=== PATIENT | female | born 1980 | race Two or more races ===

== ENCOUNTER 2017-12-10 05:19 | Emergency (ER) | payer SELFPAY ==
[~2017-12-10] VITALS: Ht 162.6 cm; Wt 78.9 kg
[2017-12-10 06:04] LABS: BILIRUBIN,URINE NEGATIVE (NEG); CLARITY,URINE CLEAR; COLOR,URINE YELLOW; NITRITE,URINE NEGATIVE (NEG); PH,URINE 6.5; PROTEIN,URINE NEGATIVE (NEG-TRACE); UROBILINOGEN,URINE 0.2 mg/dL (0.2 mg/dL)
[2017-12-10 06:16] LABS: SQUAMOUS EPITHELIAL CELL,UR MOD /LPF
[2017-12-10 06:17] LABS: AMORPHOUS SEDIMENT,UR PRESENT /HPF; BACTERIA,URINE 0 /HPF (0-FEW); WBC,URINE OCC /HPF (0-4)
--- NOTE | 2017-12-10 06:27 | PHYS DOC ---
Past Medical History Past Medical History: No Pertinent History Past Surgical History: No Surgical History Smoking: Cigarettes Alcohol Use: None Drug Use: None Adult General Chief Complaint Chief Complaint: ABDOMINAL PAIN HPI HPI 37-year-old female presenting to the emergency department today with epigastric abdominal pain that radiates into the back. It is sharp shooting pain that comes and goes. It is been present for the past 6 hours today without any alleviating or exacerbating factors. No associated nausea. This occurred approximately 3 weeks ago as well similar symptoms. She denies fevers or chills. she denies any previous abd surgeries. Review of systems is negative for chest pain shortness of breath or blood in stools. positive for 2 episodes of emesis. All other review systems is negative. ED course: 37-year-old female presenting the emergency department today with epigastric abdominal pain. On arrival the patient's afebrile with normal heart rate. She is well-appearing on examination. Abdomen is soft and mildly tender in the right upper quadrant. No rebound tenderness or guarding. Negative McBurney's point. The remainder the exam is unremarkable. Ultrasound shows gallstones. CAT scan also reports possible large fecal ball versus intraluminal mass. I explained these findings the patient and give the patient a handout of the findings to follow-up with her primary care doctor in the next 2-3 days over. The patient's symptoms are suggestive of symptomatic cholelithiasis. Refer the patient a surgeon with oral pain medication and nausea medication.The patient has been examined and was not found to have an emergency medical condition. The patient was then discharged home in stable condition to follow up with their primary care physician over the next 2-3 days. They were to return if their symptoms worsened or if they were concerned for any reason. They were also instructed to return to the emergency department if they were unable to get the recommended and appropriate follow-up. [id number] discharge instructions and return precautions were given. Patient's questions were answered to their satisfaction. Patient is comfortable with plan. Current Medications Current Medications Current Medications Medications (Trade) Dose Ordered Sig/Tiago Start Time Stop Time Status Last Admin Dose Admin Fentanyl Citrate (Fentanyl 2ml Vial) 50 mcg 1X ONCE 12/10/17 07:00 12/10/17 07:01 DC 12/10/17 06:31 50 MCG Info (CONTRAST GIVEN -- Rx MONITORING) 1 each PRN DAILY PRN 12/10/17 07:00 12/12/17 06:59 Iohexol (Omnipaque 300 Mg/ml) 75 ml 1X ONCE 12/10/17 07:00 12/10/17 07:01 DC Sodium Chloride 1,000 ml @ 1,000 mls/hr 1X ONCE 12/10/17 07:00 12/10/17 07:59 DC 12/10/17 06:31 1,000 MLS/HR Allergies Allergies Allergies Coded Allergies Type Severity Reaction Last Updated Verified No Known Drug Allergies 12/10/17 No Physical Exam Physical Exam Constitutional: Well developed, well nourished, no acute distress, non-toxic appearance. [] HENT: Normocephalic, atraumatic, bilateral external ears normal, oropharynx moist, no oral exudates, nose normal. [] Eyes: PERRLA, EOMI, conjunctiva normal, no discharge. [] Neck: Normal range of motion, no tenderness, supple, no stridor. [] Cardiovascular:Heart rate regular rhythm, no murmur [] Lungs & Thorax: Bilateral breath sounds clear to auscultation [] Abdomen: Bowel sounds normal, soft, no masses, no pulsatile masses. as above Skin: Warm, dry, no erythema, no rash. [] Back: No tenderness, no CVA tenderness. [] Extremities: No tenderness, no cyanosis, no clubbing, ROM intact, no edema. [] Neurologic: Alert and oriented X 3, normal motor function, normal sensory function, no focal deficits noted. [] Psychologic: Affect normal, judgement normal, mood normal. [] Current Patient Data Vital Signs Vital Signs Date Time Temp Pulse Resp B/P (MAP) Pulse Ox O2 Delivery O2 Flow Rate FiO2 12/10/17 07:00 58 114/66 (82) 99 Room Air 12/10/17 06:31 16 12/10/17 06:07 98.2 98.2 Lab Values Laboratory Tests Test 12/10/17 05:28 12/10/17 05:49 12/10/17 06:03 Urine Collection Type Unknown Urine Color Yellow Urine Clarity Clear Urine pH 6.5 Urine Specific [place] 1.025 Urine Protein Negative mg/dL (NEG-TRACE) Urine Glucose (UA) Negative mg/dL (NEG) Urine Ketones (Stick) Negative mg/dL (NEG) Urine Blood Moderate (NEG) Urine Nitrite Negative (NEG) Urine Bilirubin Negative (NEG) Urine Urobilinogen Dipstick 0.2 mg/dL (0.2 mg/dL) Urine Leukocyte Esterase Trace (NEG) Urine RBC 3-5 /HPF (0-2) Urine WBC Occ /HPF (0-4) Urine Squamous Epithelial Cells Mod /LPF Urine Amorphous Sediment Present /HPF Urine Bacteria 0 /HPF (0-FEW) Urine Mucus Mod /LPF POC Urine HCG, Qualitative Hcg negative (Negative) White Blood Count 10.0 x10^3/uL (4.0-11.0) Red Blood Count 4.23 x10^6/uL (3.50-5.40) Hemoglobin 11.6 g/dL (12.0-15.5) L Hematocrit 34.5 % (36.0-47.0) L Mean Corpuscular Volume 82 fL (79-100) Mean Corpuscular Hemoglobin 28 pg (25-35) Mean Corpuscular Hemoglobin Concent 34 g/dL (31-37) Red Cell Distribution Width 14.9 % (11.5-14.5) H Platelet Count 266 x10^3/uL (140-400) Neutrophils (%) (Auto) 70 % (31-73) Lymphocytes (%) (Auto) 21 % (24-48) L Monocytes (%) (Auto) 7 % (0-9) Eosinophils (%) (Auto) 1 % (0-3) Basophils (%) (Auto) 1 % (0-3) Neutrophils # (Auto) 7.1 x10^3uL (1.8-7.7) Lymphocytes # (Auto) 2.1 x10^3/uL (1.0-4.8) Monocytes # (Auto) 0.7 x10^3/uL (0.0-1.1) Eosinophils # (Auto) 0.1 x10^3/uL (0.0-0.7) Basophils # (Auto) 0.1 x10^3/uL (0.0-0.2) Sodium Level 140 mmol/L (136-145) Potassium Level 3.9 mmol/L (3.5-5.1) Chloride Level 104 mmol/L (98-107) Carbon Dioxide Level 24 mmol/L (21-32) Anion Gap 12 (6-14) Blood Urea Nitrogen 10 mg/dL (7-20) Creatinine 0.8 mg/dL (0.6-1.0) Estimated GFR (Cockcroft-Gault) 80.3 BUN/Creatinine Ratio 13 (6-20) Glucose Level 121 mg/dL (70-99) H Calcium Level 9.3 mg/dL (8.5-10.1) Total Bilirubin 0.2 mg/dL (0.2-1.0) Aspartate Amino Transferase (AST) 34 U/L (15-37) Alanine Aminotransferase (ALT) 21 U/L (14-59) Alkaline Phosphatase 53 U/L (46-116) Total Protein 8.0 g/dL (6.4-8.2) Albumin 3.7 g/dL (3.4-5.0) Albumin/Globulin Ratio 0.9 (1.0-1.7) L Lipase 147 U/L (73-393) Serum Test, Qualitative Negative (NEG) Laboratory Tests 12/10/17 06:03 Laboratory Tests 12/10/17 06:03 EKG EKG [] Radiology/Procedures Radiology/Procedures [] Course & Med Decision Making Course & Med Decision Making Pertinent Labs and Imaging studies reviewed. (See chart for details) [] Dragon Disclaimer Dragon Disclaimer This electronic medical record was generated, in whole or in part, using a voice recognition dictation system. Departure Departure Impression: Primary Impression: Cholelithiasis Disposition: 01 HOME, SELF-CARE Condition: STABLE Referrals: NO PCP (PCP) HARINDER ARCINIEGA MD, LEE V MD Patient Instructions: Cholelithiasis Additional Instructions: Thank you for allowing us to participate in your care today. Return to the emergency department you have any new or worsening symptoms, or if you are concerned for any reason. Return to emergency department if you have any new or concerning symptoms including but not limited to fever, chills, nausea, vomiting, intractable pain, any new rashes, chest pain, shortness of air , uncontrolled bleeding, difficulty breathing, and/or vision loss. 1. Follow up with a general surgeon for evaluation for possible removal of the gallbladder in [address] shows intraluminal mass, maybe feces vs mass. Follow up with your doctor in 2-3 days for this. Call your Primary Doctor tomorrow and inform them of your visit today. If you do not have a primary care provider we are happy to provide you with a list of our primary care providers contact information. This condition should be evaluated by your primary care physician and any recommended consulting services for continued management within 2-3 days after discharge, 7 days for the surgeon. If at any time, you are having difficulty getting into your primary care doctor or a specialist, return to the emergency department. You may have been prescribed medication or given medication in the emergency department that can change in your level of thinking and ability to operate machinery. Many prescribed medications can cause this. Some commonly prescribed medications include hydrocodone, ativan, and benadryl. Be sure to check with your pharmacist and ask if the medications you've prescribed can affect your level of consciousness. I recommend not operating heavy machinery or driving while on medication such as these. ELIE GARRIOSN MD Dec 10, 2017 06:27
[2017-12-10 06:29] LABS: BASO # 0.1 x10^3/uL (0.0-0.2); BASO % 1 % (0-3); EOS # 0.1 x10^3/uL (0.0-0.7); EOS % 1 % (0-3); HEMATOCRIT 34.5 % (36.0-47.0); HEMOGLOBIN 11.6 g/dL (12.0-15.5); LYMPH # 2.1 x10^3/uL (1.0-4.8); LYMPH % 21 % (24-48); MEAN CORPUSCULAR HEMOGLOBIN 28 pg (25-35); MEAN CORPUSCULAR HGB CONC 34 g/dL (31-37); MEAN CORPUSCULAR VOLUME 82 fL (79-100); MONO # 0.7 x10^3/uL (0.0-1.1); MONO % 7 % (0-9); NEUT # 7.1 x10^3uL (1.8-7.7); NEUT % 70 % (31-73); PLATELET COUNT 266 x10^3/uL (140-400); RED BLOOD COUNT 4.23 x10^6/uL (3.50-5.40); RED CELL DISTRIBUTION WIDTH 14.9 % (11.5-14.5)
[2017-12-10] MEDS: fentaNYL PF VIAL 100 MCG/2 ML VIAL IV ONE (06:31)
[2017-12-10] MEDS: IV NORMAL SALINE 1000ML BAG 1,000 ML IV ONE (06:31)
[2017-12-10 06:36] LABS: CALCIUM 9.3 mg/dL (8.5-10.1); CREATININE 0.8 mg/dL (0.6-1.0); GFR 80.3; POTASSIUM 3.9 mmol/L (3.5-5.1)
[2017-12-10 06:42] LABS: ALBUMIN 3.7 g/dL (3.4-5.0); ALBUMIN/GLOBULIN RATIO 0.9 (1.0-1.7); TOTAL BILIRUBIN 0.2 mg/dL (0.2-1.0)
--- NOTE | 2017-12-10 06:52 | EKG ---
[facility] [address] [place] [address] Test Date: 2017-12-10 Test Time: 06:43:21 Pat Name: VITALIY PLASCENCIA Department: Room: Gender: F Delivery Consultant: : 1980 Requested By: ELIE GARRISON Order Number: [id number] Reading MD: Measurements Intervals [place] Rate: 56 P: 54 [place]: 118 QRS: 62 QRSD: 82 T: 33 QT: 412 QTc: 400 Interpretive Statements SINUS RHYTHM QRS(T) CONTOUR ABNORMALITY CONSIDER ANTEROSEPTAL MYOCARDIAL DAMAGE CONSIDER INFERIOR MYOCARDIAL DAMAGE POSSIBLY ABNORMAL ECG RI6.01 No previous ECG available for comparison
[2017-12-10 07:00] VITALS: BP 114/66
[2017-12-10] MEDS ORDERED: CONTRAST GIVEN. MC PRN (07:00)
[2017-12-10] MEDS ORDERED: IOHEXOL 300 MG/ML 100ML VIAL. IV ONE (07:00)
[2017-12-10 07:09] LABS: PREG TEST PT QUAL NEGATIVE (NEG)
--- NOTE | 2017-12-10 07:40 | RAD ---
Limited abdomen ultrasound study of the right upper quadrant Clinical indications: Right upper quadrant abdominal pain. FINDINGS: The pancreas is homogeneous without focal enlargement. There is attenuation of sound throughout the liver which may be seen with fatty infiltration of the liver. This decreases the sensitivity of sonography to detect focal hepatic lesions. No focal hepatic mass is seen otherwise. The liver measures 16.3 cm in length which is normal. Biliary sludge and an 11 mm gallstone are seen within the gallbladder. No gallbladder wall thickening or pericholecystic free fluid is evident. The extra hepatic bile duct measures 3.9 mm in caliber which is normal. The length of the right kidney is 10.5 cm. No hydronephrosis or renal mass or perinephric fluid collection is seen on the right side. IMPRESSION: Cholelithiasis. Fatty liver. Electronically signed by: Robert Quevedo MD (12/10/2017 7:36 AM) [facility]
--- NOTE | 2017-12-10 07:50 | RAD ---
CT study of the abdomen and pelvis with contrast Clinical indications: Upper abdominal pain. No previous surgeries. TECHNIQUE: After IV infusion of 75 cc of Omnipaque 300, helical CT scanning of the abdomen and pelvis was performed. No GI contrast was administered. This decreases the sensitivity to detect GI tract pathology. PQRS compliance Statement One or more of the following individualized dose reduction techniques were utilized for this study: 1. Automated exposure control 2. Adjustment of the mA and/or kV according to patient size 3. Use of iterative reconstruction technique COMPARISON: None available. FINDINGS: No hepatic mass is seen. The spleen is not enlarged. The pancreas is normal. Multiple gallstones are seen within the gallbladder. The largest is seen within the fundus measuring 17 mm. Additional gallstones are seen within the neck of the gallbladder. No gallbladder wall thickening is evident. No extra hepatic biliary ductal dilatation is seen. No adrenal mass is evident. Both kidneys are normal without hydronephrosis. No focal aneurysmal dilatation of the abdominal aorta is seen. No enlarged abdominal or pelvic lymphadenopathy is evident. The appendix is normal. Terminal ileum is unremarkable. There is a soft tissue mass within the cecum at the level of the ileocecal valve which measures 5 cm in size. No obstructive bowel pattern is evident. No free intraperitoneal air or free fluid or mesenteric edema is seen. No uterine mass is seen. No dominant ovarian cyst or mass is evident. Calcified granulomas of the left lung base are seen. No osteolytic process is seen. IMPRESSION: Cholelithiasis. There is a 5 cm soft tissue mass within the lumen of the cecum at the level of the ileocecal valve. Given the patient's younger age, this most likely represents a large fecal ball but an intraluminal neoplastic lesion or villous adenoma are certainly possible. Electronically signed by: Robert Quevedo MD (12/10/2017 7:47 AM) [facility]
[2017-12-10] MEDS ORDERED: HYDR-2758 PO (09:02)
[2017-12-10] MEDS ORDERED: ONDA4TAB10 SL (09:02)
== END 2017-12-10 09:00 | disposition home or self-care (01) ==
LOC: ER 05:19
DX: K80.20 Calculus of gallbladder without cholecystitis without obstruction (principal); R11.10 Vomiting, unspecified; F17.210 Nicotine dependence, cigarettes, uncomplicated
CPT/HCPCS: 36415; 74177; 76705; 80053; 81001; 81025; 83690; 84703; 85025; 93005; 96361; 96374; 99285; J3010; J7030